=== PATIENT | female | born 2000 | race Two or more races ===

== ENCOUNTER 2019-08-29 13:02 | Emergency (ER) | payer OTHER ==
[~2019-08-29] VITALS: Ht 170.2 cm; Wt 63.5 kg
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
[2019-08-29] MEDS ORDERED: ORPH100T PO (15:47)
[2019-08-29 15:51] VITALS: BP 101/59
== END 2019-08-29 15:58 | disposition home or self-care (01) ==
LOC: ER 13:02
DX: S06.0X0A Concussion without loss of consciousness, initial encounter (principal); V49.9XXA Car occupant (driver) (passenger) injured in unspecified traffic accident, initial encounter; Y93.89 Activity, other specified; Y92.410 Unspecified street and highway as the place of occurrence of the external cause; Y99.8 Other external cause status
CPT/HCPCS: 70450; 72125; 81025; 99284